=== PATIENT | female | born 1975 ===

== ENCOUNTER 2021-10-28 12:15 | Inpatient (IN) | payer OTHER ==
[~2021-10-28] VITALS: Ht 154.9 cm; Wt 45.4 kg
== END 2021-10-30 18:38 | disposition home or self-care (01) | DRG 741 ==
LOC: OB/GYN 10-29 07:14 → O/R 10-29 07:14 → SURG 10-29 09:45 → OB/GYN 10-29 13:43
PROVIDERS: ADMIT Specialist; ATTEND Specialist
PROC: 0UT70ZZ Resection of Bilateral Fallopian Tubes, Open Approach (ICD-10-PCS; 2021-10-29)
PROC: 0UT20ZZ Resection of Bilateral Ovaries, Open Approach (ICD-10-PCS; 2021-10-29)
PROC: 0UT90ZZ Resection of Uterus, Open Approach (ICD-10-PCS; principal; 2021-10-29 09:45)
DX: D06.0 Carcinoma in situ of endocervix (principal); D25.1 Intramural leiomyoma of uterus; N84.0 Polyp of corpus uteri; N72 Inflammatory disease of cervix uteri; N83.01 Follicular cyst of right ovary; N83.291 Other ovarian cyst, right side; N83.292 Other ovarian cyst, left side; Z20.822 Contact with and (suspected) exposure to COVID-19